=== PATIENT | male | born 1995 | race Caucasian/White ===

== ENCOUNTER 2020-05-23 15:10 | Emergency (ER) | payer SELFPAY ==
[~2020-05-23] VITALS: Ht 175.3 cm; Wt 81.8 kg
[2020-05-23 15:41] LABS: BASOPHILS % (AUTO) 0 % (0-10); EOSINOPHILS # (AUTO) 0.3 10^3/uL (0.0-0.3); EOSINOPHILS % (AUTO) 4 % (0-10); HEMATOCRIT 42 % (40-54); HEMOGLOBIN 15.1 G/DL (13.3-17.7); LYMPHOCYTES # (AUTO) 2.8 X 10^3 (1.0-4.0); LYMPHOCYTES % (AUTO) 37 % (12-44); MEAN CORPUSCULAR HEMOGLOBIN 32 PG (25-34); MEAN CORPUSCULAR HGB CONC 36 G/DL (32-36); MEAN CORPUSCULAR VOLUME 89 FL (80-99); MEAN PLATELET VOLUME 11.7 FL (7.4-10.4); MONOCYTES # (AUTO) 0.9 X 10^3 (0.0-1.0); MONOCYTES % (AUTO) 11 % (0-12); NEUTROPHILS # (AUTO) 3.5 X 10^3 (1.8-7.8); NEUTROPHILS % (AUTO) 47 % (42-75); PLATELET COUNT 181 10^3/uL (130-400); RED CELL DISTRIBUTION WIDTH 12.2 % (10.0-14.5); WHITE BLOOD COUNT 7.5 10^3/uL (4.3-11.0)
--- NOTE | 2020-05-23 15:44 | ED Chest Pain ---
General Chief Complaint: Cardiac/General Problems Stated Complaint: CHEST PAIN History of Present Illness Date Seen by Provider: May 23, 2020 Time Seen by Provider: 15:20 Initial Comments 25 -year-old male presents for chest pain that has been intermittent over the last 4-6 weeks occ noted to have palpitations with the pain, it became worse at approximately 1330 today. He was sitting in a meeting under no increased stress or anxiety. [facility] and had an EKG that showed sinus rhythm and was given aspirin 324 mg orally. No history of CAD, diabetes mellitus, or congenital heart disease. He does not take any medications regularly. No family history of CAD. He does become SOA and diaphoretic with chest pain, no nausea. It is very isolated pain , at 3-4 IC space, on left sternal border. No radiation. Does not use tobacco and rarely uses marijuana, last use yesterday. Pain is not present at this time but he is SOA after walking to exam room, SaO2 99% RA and HR 76. Timing/Duration: other Severity/Quality: moderate Radiation: no radiation Prior CP/Workup: no prior chest pain ASA po ENVIRONMENTAL SERVICES FLOOR TECH: Yes NTG SL ENVIRONMENTAL SERVICES FLOOR TECH: No Associated Symptoms: diaphoresis, shortness of breath Allergies and Home Medications Allergies Coded Allergies: No Known Drug Allergies (Unverified , 05/23/20) Patient Home Medication List Home Medication List Reviewed: Yes Review of Systems Review of Systems Constitutional: no symptoms reported, see HPI Respiratory: See HPI; Denies Cough; SOA With Exertion Cardiovascular: See HPI, Chest Pain Gastrointestinal: No Symptoms Reported, See HPI Genitourinary: No Symptoms Reported Skin: no symptoms reported, see HPI Psychiatric/Neurological: No Symptoms Reported, See HPI; Denies Anxiety, Denies Headache, Denies Weakness All Other Systems Reviewed Negative Unless Noted: Yes Past Qqtzcdk-Lgwslu-Srknfs Hx Past Med/Social Hx: Reviewed Nursing Past Med/Soc Hx Patient Social History Recent Foreign Travel: No Contact w/Someone Who Travel: No Physical Exam Vital Signs Vital Signs - First Documented 05/23/20 15:25 Temp 36.6 Pulse 83 Resp 18 B/P (MAP) 140/101 (114) Pulse Ox 99 O2 Delivery Room Air Capillary Refill : Height, Weight, BMI Height: '" Weight: lbs. oz. kg; BMI Method: General Appearance: No Apparent Distress, WD/WN HEENT: PERRL/EOMI, TMs Normal, Normal ENT Inspection, Pharynx Normal Neck: Full Range of Motion, Normal Inspection, Non Tender, Supple Respiratory: Chest Non Tender, Lungs Clear, Normal Breath Sounds, No Accessory Muscle Use, No Respiratory Distress Cardiovascular: Regular Rate, Rhythm, No Murmur, Normal Peripheral Pulses Gastrointestinal: Normal Bowel Sounds, Non Tender, Soft Neurologic/Psychiatric: Alert, Oriented x3, No Motor/Sensory Deficits, Normal Mood/Affect Skin: Normal Color, Warm/Dry Progress/Results/Core Measures Results/Orders Lab Results Laboratory Tests Test 05/23/20 15:30 Range/Units White Blood Count 7.5 4.3-11.0 10^3/uL Red Blood Count 4.73 4.35-5.85 10^6/uL Hemoglobin 15.1 13.3-17.7 G/DL Hematocrit 42 40-54 % Mean Corpuscular Volume 89 80-99 FL Mean Corpuscular Hemoglobin 32 25-34 PG Mean Corpuscular Hemoglobin Concent 36 32-36 G/DL Red Cell Distribution Width 12.2 10.0-14.5 % Platelet Count 181 130-400 10^3/uL Mean Platelet Volume 11.7 H 7.4-10.4 FL Neutrophils (%) (Auto) 47 42-75 % Lymphocytes (%) (Auto) 37 12-44 % Monocytes (%) (Auto) 11 0-12 % Eosinophils (%) (Auto) 4 0-10 % Basophils (%) (Auto) 0 0-10 % Neutrophils # (Auto) 3.5 1.8-7.8 X 10^3 Lymphocytes # (Auto) 2.8 1.0-4.0 X 10^3 Monocytes # (Auto) 0.9 0.0-1.0 X 10^3 Eosinophils # (Auto) 0.3 0.0-0.3 10^3/uL Basophils # (Auto) 0.0 0.0-0.1 10^3/uL Prothrombin Time 12.8 12.2-14.7 SEC INR Comment 0.9 0.8-1.4 Activated Partial Thromboplast Time 28 24-35 SEC Sodium Level 139 135-145 MMOL/L Potassium Level 3.4 L 3.6-5.0 MMOL/L Chloride Level 106 98-107 MMOL/L Carbon Dioxide Level 22 21-32 MMOL/L Anion Gap 11 5-14 MMOL/L Blood Urea Nitrogen 13 7-18 MG/DL Creatinine 0.81 0.60-1.30 MG/DL Estimat Glomerular Filtration Rate > 60 BUN/Creatinine Ratio 16 Glucose Level 108 H 70-105 MG/DL Calcium Level 9.3 8.5-10.1 MG/DL Corrected Calcium 8.5-10.1 MG/DL Magnesium Level 2.0 1.6-2.4 MG/DL Total Bilirubin 0.7 0.1-1.0 MG/DL Aspartate Amino Transf (AST/SGOT) 31 5-34 U/L Alanine Aminotransferase (ALT/SGPT) 77 H 0-55 U/L Alkaline Phosphatase 63 40-136 U/L Myoglobin 24.3 10.0-92.0 NG/ML Troponin I < 0.028 <0.028 NG/ML Total Protein 8.1 6.4-8.2 GM/DL Albumin 4.7 H 3.2-4.5 GM/DL Amylase Level 38 25-125 U/L Lipase 35 8-78 U/L My Orders Orders - SUZIE,MARCIA [employer]POWER DEVELOPMENT ADVISOR Cbc With Automated Diff (05/23/20 15:30) Magnesium (05/23/20 15:30) Chest 1 View, Ap/Pa Only (05/23/20 15:30) Ekg Tracing (05/23/20 15:30) Comprehensive Metabolic Panel (05/23/20 15:30) Myoglobin Serum (05/23/20 15:30) Protime With Inr (05/23/20 15:30) Partial Thromboplastin Time (05/23/20 15:30) Monitor-Rhythm Ecg Trace Only (05/23/20 15:30) Ed Iv/Invasive Line Start (05/23/20 15:30) Lipase (05/23/20 15:30) Amylase (05/23/20 15:30) Troponin I (05/23/20 15:30) Vital Signs/I&O 05/23/20 05/23/20 15:25 16:54 Temp 36.6 36.6 Pulse 83 74 Resp 18 17 B/P (MAP) 140/101 (114) 142/99 (114) Pulse Ox 99 98 O2 Delivery Room Air Room Air Progress Progress Note : Time: 15:20 Progress Note Patient seen and evaluated, will obtain labs, chest x-ray and EKG. He received aspirin prior to arrival at [facility]. So we will hold giving any further aspirin. Patient reports minimal pain at this time. 1600 labs all essentially normal, heart rate remained 60-80, no chest pain. 1640 discharge instructions and return precautions reviewed with patient. All questions answered. Stressed importance to follow up with Cardiology. Initial ECG Impression Date: May 23, 2020 Initial ECG Impression Time: 15:26 Initial ECG Rate: 69 Initial ECG Rhythm: Normal Sinus Initial ECG Intervals: Normal Initial ECG Intervals MS 138, QRSD 100, QT 386, QTC 414. [place] P 15, QRS 48, T 27. Initial ECG Impression: Normal Initial ECG Comparisson: No Previous ECG Available Diagnostic Imaging Diagonstic Imaging: Xray Plain Films/CT/US/NM/MRI: chest Comments NAME: ALICJA VAUGHN [facility] REC#: [id number] PT STATUS: REG ER : 1995 PHYSICIAN: MARCIA LARSEN ADMIT DATE: 05/23/20/ER Draft Date of Exam:05/23/20 CHEST 1 VIEW, AP/PA ONLY INDICATION: Chest pain. TECHNIQUE: Single view chest 3:53 PM. CORRELATION STUDY: None FINDINGS: The heart size, mediastinal configuration and pulmonary vascularity are within normal limits. The lungs are clear with no consolidating infiltrate. There is no significant effusion or pneumothorax. IMPRESSION: 1. Negative for acute abnormality of the chest. Dictated on workstation # [id number] Dict: 05/23/20 1556 Trans: 05/23/20 1557 DO [id number] Interpreted by: JENN CASTRO DO Electronically signed by: Reviewed: Reviewed by Me Departure Impression Primary Impression: Palpitations Additional Impression: Chest wall pain Disposition: 01 HOME, SELF-CARE Condition: Improved Departure-Patient Inst. Decision time for Depature: 16:40 Referrals: NO,LOCAL PHYSICIAN (PCP) Primary Care Physician Radha MARI MD Patient Instructions: Chest Pain (DC), Palpitations (DC) Add. Discharge Instructions: Take aspirin 81 mg 1 tablet daily. Call for an appointment with Dr. Mari. Return to the emergency department for chest pain or shortness of breath. All discharge instructions reviewed with patient and/or family. Voiced understanding. Copy Copies To 1: Radha MARI MD, AMY ARNP May 23, 2020 15:44
[2020-05-23 15:52] LABS: ALBUMIN 4.7 GM/DL (3.2-4.5); CHLORIDE 106 MMOL/L (98-107); POTASSIUM 3.4 MMOL/L (3.6-5.0); SODIUM 139 MMOL/L (135-145)
[2020-05-23 15:54] LABS: AMYLASE 38 U/L (25-125); CALCIUM 9.3 MG/DL (8.5-10.1)
[2020-05-23 15:55] LABS: GLUCOSE 108 MG/DL (70-105); TOTAL PROTEIN 8.1 GM/DL (6.4-8.2)
[2020-05-23 15:56] LABS: CARBON DIOXIDE 22 MMOL/L (21-32)
[2020-05-23 15:57] LABS: BILIRUBIN,TOTAL 0.7 MG/DL (0.1-1.0)
--- NOTE | 2020-05-23 15:57 | Diagnostic Imaging Report ---
INDICATION: Chest pain. TECHNIQUE: Single view chest 3:53 PM. CORRELATION STUDY: None FINDINGS: The heart size, mediastinal configuration and pulmonary vascularity are within normal limits. The lungs are clear with no consolidating infiltrate. There is no significant effusion or pneumothorax. IMPRESSION: 1. Negative for acute abnormality of the chest. Dictated by: Dictated on workstation # [id number]
[2020-05-23 15:58] LABS: ALKALINE PHOSPHATASE 63 U/L (40-136)
[2020-05-23 15:59] LABS: CREATININE SERUM 0.81 MG/DL (0.60-1.30); GFR ESTIMATED > 60
[2020-05-23 16:00] LABS: BUN/CREATININE RATIO 16
[2020-05-23 16:01] LABS: ALANINE AMINOTRANSFERASE 77 U/L (0-55)
[2020-05-23 16:02] LABS: INR 0.9 (0.8-1.4); LIPASE 35 U/L (8-78); PROTHROMBIN TIME PATIENT 12.8 SEC (12.2-14.7)
[2020-05-23 16:54] VITALS: BP 142/99
--- OUTSIDE RECORDS SUMMARY | 2020-05-23 17:38 | XMS REPORT | Continuity of Care Document ---
Author Author [facility] Organization [employer] Address Unknown Phone Unavailable Allergies There is no data. Medications There is no data. Problems There is no data. Procedures There is no data. Results There is no data. Encounters ACCT No. Visit Date/Time Discharge Status Pt. Type Provider Facility Loc./Unit Complaint [id number] 08/14/2019 12:10:00 08/14/2019 23:59:5 9 CLS Outpatient [facility]
== END 2020-05-23 16:54 | disposition home or self-care (01) ==
LOC: EDUNIT# 15:10 → ER 15:12
DX: R00.2 Palpitations (principal); R07.89 Other chest pain
CPT/HCPCS: 36415; 71045; 80053; 82150; 83690; 83735; 83874; 84484; 85025; 85610; 85730; 93005; 93041

== ENCOUNTER 2020-06-29 08:19 | Outpatient (RCR) | payer SELFPAY | END 2020-09-27 | disposition home or self-care (01) | LOC: CARD 08:19 | PROVIDERS: ATTEND Internal Medicine Interventional Cardiology | DX: I49.9 Cardiac arrhythmia, unspecified (principal) | CPT/HCPCS: 93270 ==